=== PATIENT | female | born 1985 | race Native Hawaiian/Other Pacific Islander ===

== ENCOUNTER 2017-12-09 00:37 | Emergency (ER) | payer OTHER ==
[~2017-12-09] VITALS: Ht 162.6 cm; Wt 127.0 kg
[2017-12-09 00:45] VITALS: TEMP 97.1
[2017-12-09 01:49] VITALS: BP 138/74
== END 2017-12-09 01:50 | disposition home or self-care (01) ==
LOC: EDP 00:37 → ED 00:37
DX: M54.41 Lumbago with sciatica, right side (principal)
CPT/HCPCS: 96372; 99283; J1100; J2360